=== PATIENT | male | born 1945 | race African-American/Black ===

== ENCOUNTER 2018-07-07 09:24 | Inpatient (IN) | payer MEDICARE, MEDICAID ==
[~2018-07-07] VITALS: Ht 170.2 cm; Wt 56.0 kg
[~2018-07-07 09:24] MED LIST: ALBUTEROL INH; ASPIRIN PO; FINA1TAB18 PO; TAMS-11 PO; TIOT18CA3 IH
[2018-07-07] MEDS ORDERED: ALBUTEROL (0.083%) 2.5MG/3ML NEB HHN STA ×2 (10:06→13:06)
[2018-07-07 10:26] LABS: BASOPHILS % 0.7 % (0.0-2.0); EOSINOPHILS % 2.8 % (0.0-5.0); HEMATOCRIT. 44.2 % (42.0-52.0); HEMOGLOBIN. 14.7 g/dL (14.0-18.0); LYMPHOCYTES % 21.3 % (20.0-50.0); MEAN CORPUSCULAR HEMOGLOBIN 31.2 pg (28.0-32.0); MEAN CORPUSCULAR VOLUME 93.9 fL (80.0-94.0); MEAN PLATELET VOLUME 8.8 fl (7.4-10.4); MONOCYTES % 7.6 % (2.0-8.0); NEUTROPHILS % 67.6 % (40.0-76.0); PLATELET 182 x1000/uL (130-400); RED BLOOD CELL COUNT 4.71 mill/uL (4.7-6.1); RED CELL DISTRIBUTION WIDTH 13.6 % (11.6-14.6)
[2018-07-07 10:32] LABS: CHLORIDE 108 mEq/L (98-107)
[2018-07-07 10:35] LABS: INR 1.2; PROTHROMBIN TIME 12.2 sec (9.6-11.0)
[2018-07-07] MEDS ORDERED: POTASSIUM CHLORIDE 20MEQ TABLET SR PO ONE (10:45)
[2018-07-07] MEDS ORDERED: IPRATROPIUM BROMIDE (0.02%) 0.5MG/2.5ML NEB HHN STA (13:06)
[2018-07-07] MEDS ORDERED: METHYLPREDNISOLONE SOD SUCC 125 MG/2 ML VIAL IV STA (13:06)
[2018-07-07] MEDS ORDERED: NITROGLYCERIN OINT 1GM/INCH UDPKT TD ONE (13:15)
[2018-07-07] MEDS ORDERED: FUROSEMIDE 40MG/4ML VIAL IV ONE (13:15)
[2018-07-07 15:30] VITALS: BP 127/64
[2018-07-07] MEDS ORDERED: ONDANSETRON HCL 4MG/2ML INJ IV PRN (15:30)
[2018-07-07] MEDS ORDERED: IPRATROPIUM/ALBUTEROL 0.5-3(2.5)MG/3ML NEB INH PRN (15:30)
[2018-07-07] MEDS ORDERED: ACETAMINOPHEN 325MG TABLET PO PRN (15:30)
[2018-07-07] MEDS ORDERED: CLONIDINE 0.1MG TABLET PO PRN (15:30)
[2018-07-07 16:00] VITALS: BP 115/42
[2018-07-07] MEDS: ENOXAPARIN 40MG/0.4ML SYR SUBCUT SCH (18:01)
[2018-07-07 20:12] VITALS: BP 118/73
[2018-07-07] MEDS: METHYLPREDNISOLONE SOD SUCC 40 MG/ML VIAL IV SCH (22:39)
[2018-07-07 23:11] LABS: CREATINE KINASE 96 IU/L (39-308)
[2018-07-08] VITALS: BP 129/69
[2018-07-08 04:00] VITALS: BP 130/64
[2018-07-08] MEDS: METHYLPREDNISOLONE SOD SUCC 40 MG/ML VIAL IV SCH ×3 (06:25→21:25)
[2018-07-08 07:16] LABS: HEMATOCRIT. 38.7 % (42.0-52.0); HEMOGLOBIN. 13.1 g/dL (14.0-18.0); MEAN CORPUSCULAR HEMOGLOBIN 31.8 pg (28.0-32.0); MEAN CORPUSCULAR VOLUME 94.2 fL (80.0-94.0); MEAN PLATELET VOLUME 9.3 fl (7.4-10.4); PLATELET 174 x1000/uL (130-400); RED BLOOD CELL COUNT 4.11 mill/uL (4.7-6.1); RED CELL DISTRIBUTION WIDTH 13.8 % (11.6-14.6)
[2018-07-08 07:45] LABS: CHLORIDE 109 mEq/L (98-107)
[2018-07-08 07:58] LABS: LDL CHOLESTEROL 70 mg/dL (5-100)
[2018-07-08 07:59] LABS: CREATINE KINASE 85 IU/L (39-308); T4 FREE 1.16 ng/dL (0.76-1.46)
[2018-07-08 08:00] VITALS: BP 109/47
[2018-07-08 08:00] LABS: HDL CHOLESTEROL 50 mg/dL (40-59)
[2018-07-08] MEDS: FUROSEMIDE 40MG/4ML VIAL IV SCH (08:49)
[2018-07-08 11:05] LABS: PLATELET ESTIMATE NORMAL
[2018-07-08 12:00] VITALS: BP 110/71
[2018-07-08] MEDS ORDERED: FUROSEMIDE 40MG/4ML VIAL IVP SCH (13:00)
[2018-07-08] MEDS: LEVOFLOXACIN 500MG PREMIX 100 ML IV SCH (14:29)
[2018-07-08] MEDS ORDERED: REGADENOSON 0.4 MG/5 ML IV NR (15:45)
[2018-07-08 16:00] VITALS: BP 123/56
[2018-07-08] MEDS: ENOXAPARIN 40MG/0.4ML SYR SUBCUT SCH (17:39)
[2018-07-08 19:15] LABS: *AMPHETAMINES SCREEN URINE NEGATIVE (NEGATIVE); *BARBITURATES SCREEN URINE NEGATIVE (NEGATIVE)
[2018-07-08 19:16] LABS: *BENZODIAZEPINES SCREEN URINE NEGATIVE (NEGATIVE); *COCAINE SCREEN URINE NEGATIVE (NEGATIVE); CANNABINOID URINE SCREEN NEGATIVE (NEGATIVE); METHADONE URINE SCREEN NEGATIVE (NEGATIVE); OPIATES URINE SCREEN NEGATIVE (NEGATIVE); PHENCYCLIDINE URINE SCREEN NEGATIVE (NEGATIVE)
[2018-07-08 19:50] VITALS: BP 122/65
[2018-07-08] MEDS: IPRATROPIUM/ALBUTEROL 0.5-3(2.5)MG/3ML NEB HHN SCH (20:28)
[2018-07-09] VITALS (7 sets, daily range): BP systolic 102–135; BP diastolic 45–65
[2018-07-09] MEDS: IPRATROPIUM/ALBUTEROL 0.5-3(2.5)MG/3ML NEB HHN SCH ×5 (04:14→16:11)
[2018-07-09] MEDS: METHYLPREDNISOLONE SOD SUCC 40 MG/ML VIAL IV SCH ×2 (05:41→21:40)
[2018-07-09 06:46] LABS: HEMATOCRIT 37.5 % (42.0-52.0); HEMOGLOBIN 12.6 g/dL (14.0-18.0); MEAN CORPUSCULAR HEMOGLOBIN 31.5 pg (28.0-32.0); MEAN CORPUSCULAR VOLUME 93.5 fL (80.0-94.0); PLATELET 177 x1000/uL (130-400); RED BLOOD CELL COUNT 4.01 mill/uL (4.7-6.1); RED CELL DISTRIBUTION WIDTH 13.7 % (11.6-14.6)
[2018-07-09 06:47] LABS: CHLORIDE 108 mEq/L (98-107)
[2018-07-09 06:58] LABS: LDL CHOLESTEROL 75 mg/dL (5-100)
[2018-07-09 07:00] LABS: CREATINE KINASE 60 IU/L (39-308)
[2018-07-09 07:02] LABS: CREATINE KINASE MB FRACTION < 1.0 ng/mL (0.5-3.6); HDL CHOLESTEROL 48 mg/dL (40-59)
[2018-07-09] MEDS: FUROSEMIDE 40MG/4ML VIAL IV SCH (09:16)
[2018-07-09] MEDS: LEVOFLOXACIN 500MG PREMIX 100 ML IV SCH (14:01)
[2018-07-09] MEDS: ENOXAPARIN 40MG/0.4ML SYR SUBCUT SCH (16:30)
[2018-07-09 21:23] LABS: BG BASE EXCESS 6.8 mmol/L (-2.0-2.0); BG CARBOXYHEMOGLOBIN 0.3 % (0.5-1.5); BG DEOXYHEMOGLOBIN 5.8 % (0.0-5.0); BG FRACTION INSPIRED OXYGEN 21; BG HCO3 ACT 31.2 mmol/L (22.0-26.0); BG METHEMOGLOBIN 0.4 % (0.0-1.5); BG OXYGEN SATURATION 94.2 % (92.0-98.5); BG OXYHEMOGLOBIN 93.5 % (94.0-97.0); BG PCO2 43.6 mmHg (35.0-45.0); BG PH 7.473 (7.350-7.450); BG PO2 68.2 mmHg (75.0-100.0); BG SAMPLE SITE RIGHT BRACHIAL; BG TOTAL HEMOGLOBIN 13.1 g/dL (12.0-18.0); BG VENT MODE ROOM AIR
[2018-07-10 00:05] VITALS: BP 135/66
[2018-07-10 04:00] VITALS: BP 124/77
[2018-07-10] MEDS: IPRATROPIUM/ALBUTEROL 0.5-3(2.5)MG/3ML NEB HHN SCH ×5 (05:10→20:50)
[2018-07-10 08:00] VITALS: BP 136/64
[2018-07-10] MEDS: FUROSEMIDE 40MG/4ML VIAL IV SCH (09:31)
[2018-07-10] MEDS: METHYLPREDNISOLONE SOD SUCC 40 MG/ML VIAL IV SCH ×2 (11:28→21:28)
[2018-07-10 12:00] VITALS: BP 134/66
[2018-07-10] MEDS: LEVOFLOXACIN 500MG PREMIX 100 ML IV SCH (14:25)
[2018-07-10] MEDS: HYDROCODONE/ACETAMINOPHEN 5/325MG TABLET PO PRN ×3 (14:36→18:05)
[2018-07-10 16:00] VITALS: BP 128/64
[2018-07-10] MEDS: ENOXAPARIN 40MG/0.4ML SYR SUBCUT SCH (16:00)
== END 2018-07-10 21:53 | disposition home or self-care (01) | DRG 291 ==
LOC: ER 09:24 → 7WST 11:36 → EDBEDREQ 11:42 → EDBEDREQTM 11:42 → ENRESERV 13:24
PROVIDERS: ADMIT Internal Medicine; ATTEND Internal Medicine
PROC: 4B02XTZ Measurement of Cardiac Defibrillator, External Approach (ICD-10-PCS; principal; 2018-07-08)
DX: I11.0 Hypertensive heart disease with heart failure (principal); J18.9 Pneumonia, unspecified organism; J96.90 Respiratory failure, unspecified, unspecified whether with hypoxia or hypercapnia; J44.1 Chronic obstructive pulmonary disease with (acute) exacerbation; I50.43 Acute on chronic combined systolic (congestive) and diastolic (congestive) heart failure; I42.0 Dilated cardiomyopathy; E78.00 Pure hypercholesterolemia, unspecified; E87.6 Hypokalemia; I25.10 Atherosclerotic heart disease of native coronary artery without angina pectoris; I25.2 Old myocardial infarction; I45.10 Unspecified right bundle-branch block; Z79.82 Long term (current) use of aspirin; Z87.891 Personal history of nicotine dependence; Z95.810 Presence of automatic (implantable) cardiac defibrillator; Z99.81 Dependence on supplemental oxygen; Z88.0 Allergy status to penicillin; Z88.2 Allergy status to sulfonamides
CPT/HCPCS: 36415; 36600; 71045; 80048; 80061; 80305; 82375; 82550; 82553; 82805; 82962; 83735; 83880; 84145; 84439; 84443; 84484; 85027; 93005; 93306; 94618; 94640; 96374; 96375; 97162; 97166; 99285; C1893; J1650; J1940; J1956; J2920; J2930; J7050; J7611; J7620

== ENCOUNTER 2018-07-13 09:25 | Inpatient (IN) | payer MEDICARE, MEDICAID ==
[~2018-07-13] VITALS: Ht 167.6 cm; Wt 62.6 kg
[2018-07-13 10:52] LABS: HEMATOCRIT. 43.3 % (42.0-52.0); HEMOGLOBIN. 14.4 g/dL (14.0-18.0); MEAN CORPUSCULAR HEMOGLOBIN 31.7 pg (28.0-32.0); MEAN CORPUSCULAR VOLUME 95.1 fL (80.0-94.0); MEAN PLATELET VOLUME 8.7 fl (7.4-10.4); PLATELET 139 x1000/uL (130-400); RED BLOOD CELL COUNT 4.55 mill/uL (4.7-6.1); RED CELL DISTRIBUTION WIDTH 13.6 % (11.6-14.6)
[2018-07-13 10:59] LABS: CHLORIDE 109 mEq/L (98-107)
[2018-07-13 11:22] LABS: PLATELET ESTIMATE NORMAL
[2018-07-13] MEDS ORDERED: ASPIRIN 325MG EC TABLET PO ONE (12:00)
[2018-07-13] MEDS ORDERED: HYDROCODONE/ACETAMINOPHEN 5/325MG TABLET PO PRN (16:30)
[2018-07-13] MEDS ORDERED: ONDANSETRON HCL 4MG/2ML INJ IV PRN (16:30)
[2018-07-13] MEDS ORDERED: ACETAMINOPHEN 650MG SUPP PR PRN (16:30)
[2018-07-13] MEDS ORDERED: IPRATROPIUM/ALBUTEROL 0.5-3(2.5)MG/3ML NEB INH PRN (16:30)
[2018-07-13] MEDS ORDERED: CLONIDINE 0.1MG TABLET PO PRN (16:30)
[2018-07-13] MEDS ORDERED: REGADENOSON 0.4 MG/5 ML IV NR (16:45)
[2018-07-13 20:00] VITALS: BP_SYST 147; BP_SYST 91; BP_DIAS 60; BP_DIAS 80
[2018-07-13] MEDS: ENOXAPARIN 40MG/0.4ML SYR SUBCUT SCH (22:46)
[2018-07-14] VITALS: BP 116/71
[2018-07-14] MEDS ORDERED: PRED10TA23 PO (00:15)
[2018-07-14] MEDS ORDERED: LEVO250T58 PO (00:15)
[2018-07-14 04:00] VITALS: BP 111/69
[2018-07-14 06:59] LABS: BASOPHILS % 0.1 % (0.0-2.0); EOSINOPHILS % 3.7 % (0.0-5.0); HEMATOCRIT. 37.8 % (42.0-52.0); HEMOGLOBIN. 12.5 g/dL (14.0-18.0); LYMPHOCYTES % 29.2 % (20.0-50.0); MEAN CORPUSCULAR HEMOGLOBIN 31.5 pg (28.0-32.0); MEAN CORPUSCULAR VOLUME 94.8 fL (80.0-94.0); MONOCYTES % 10.9 % (2.0-8.0); NEUTROPHILS % 56.1 % (40.0-76.0); PLATELET 140 x1000/uL (130-400); RED BLOOD CELL COUNT 3.99 mill/uL (4.7-6.1); RED CELL DISTRIBUTION WIDTH 13.4 % (11.6-14.6)
[2018-07-14 07:06] LABS: CHLORIDE 111 mEq/L (98-107)
[2018-07-14 07:21] LABS: LDL CHOLESTEROL 73 mg/dL (5-100)
[2018-07-14 07:22] LABS: CREATINE KINASE 51 IU/L (39-308)
[2018-07-14 07:23] LABS: CREATINE KINASE MB FRACTION < 1.0 ng/mL (0.5-3.6); HDL CHOLESTEROL 52 mg/dL (40-59); T4 FREE 1.12 ng/dL (0.76-1.46)
[2018-07-14 08:00] VITALS: BP 131/68
[2018-07-14 12:00] VITALS: BP 113/65
[2018-07-14] MEDS: IPRATROPIUM/ALBUTEROL 0.5-3(2.5)MG/3ML NEB HHN SCH ×4 (15:48→21:24)
[2018-07-14 16:00] VITALS: BP 148/73
[2018-07-14 20:00] VITALS: BP 114/66
[2018-07-15 00:03] VITALS: BP 109/65
[2018-07-15] MEDS: IPRATROPIUM/ALBUTEROL 0.5-3(2.5)MG/3ML NEB HHN SCH ×4 (00:45→20:40)
[2018-07-15 04:00] VITALS: BP 124/66
[2018-07-15 07:12] LABS: BASOPHILS % 0.2 % (0.0-2.0); EOSINOPHILS % 3.1 % (0.0-5.0); HEMATOCRIT. 38.5 % (42.0-52.0); HEMOGLOBIN. 12.8 g/dL (14.0-18.0); LYMPHOCYTES % 21.8 % (20.0-50.0); MEAN CORPUSCULAR HEMOGLOBIN 31.4 pg (28.0-32.0); MEAN CORPUSCULAR VOLUME 94.6 fL (80.0-94.0); MEAN PLATELET VOLUME 8.9 fl (7.4-10.4); MONOCYTES % 10.1 % (2.0-8.0); NEUTROPHILS % 64.8 % (40.0-76.0); PLATELET 138 x1000/uL (130-400); RED BLOOD CELL COUNT 4.07 mill/uL (4.7-6.1); RED CELL DISTRIBUTION WIDTH 13.2 % (11.6-14.6)
[2018-07-15 07:43] LABS: CHLORIDE 113 mEq/L (98-107)
[2018-07-15 07:44] VITALS: BP 128/75
[2018-07-15 11:59] VITALS: BP 123/70
[2018-07-15] MEDS: ASPIRIN 81MG EC TABLET PO SCH (13:12)
[2018-07-15] MEDS: PREDNISONE 20MG TABLET PO SCH (13:12)
[2018-07-15] MEDS: BUDESONIDE 0.5MG/2ML NEB HHN SCH ×2 (14:17→20:40)
[2018-07-15 15:59] VITALS: BP 139/98
[2018-07-15 20:00] VITALS: BP 98/50
[2018-07-15] MEDS: ENOXAPARIN 40MG/0.4ML SYR SUBCUT SCH (20:24)
[2018-07-15 21:46] LABS: BG CARBOXYHEMOGLOBIN 0.7 % (0.5-1.5); BG DEOXYHEMOGLOBIN 7.2 % (0.0-5.0); BG FRACTION INSPIRED OXYGEN 21; BG HCO3 ACT 25.9 mmol/L (22.0-26.0); BG METHEMOGLOBIN 0.3 % (0.0-1.5); BG OXYGEN SATURATION 92.7 % (92.0-98.5); BG OXYHEMOGLOBIN 91.8 % (94.0-97.0); BG PH 7.451 (7.350-7.450); BG PO2 61.1 mmHg (75.0-100.0); BG SAMPLE SITE LEFT BRACHIAL; BG TOTAL HEMOGLOBIN 13.7 g/dL (12.0-18.0); BG VENT MODE ROOM AIR
[2018-07-16] MEDS: IPRATROPIUM/ALBUTEROL 0.5-3(2.5)MG/3ML NEB HHN SCH ×6 (00:10→19:51)
[2018-07-16 04:00] VITALS: BP 108/51
[2018-07-16 08:00] VITALS: BP 119/62
[2018-07-16 08:20] VITALS: BP 120/62
[2018-07-16] MEDS: PREDNISONE 20MG TABLET PO SCH (08:51)
[2018-07-16] MEDS: ASPIRIN 81MG EC TABLET PO SCH (08:51)
[2018-07-16] MEDS: BUDESONIDE 0.5MG/2ML NEB HHN SCH ×2 (09:22→19:51)
[2018-07-16] MEDS: DOCUSATE SODIUM 100MG CAPSULE PO SCH ×2 (11:56→17:00)
[2018-07-16 12:00] VITALS: BP 140/61
[2018-07-16] MEDS: SODIUM CHLORIDE 0.45% 1,000 ML IV SCH (14:45)
[2018-07-16] MEDS: AMLODIPINE 5MG TABLET PO SCH (15:34)
[2018-07-16 16:00] VITALS: BP 166/92
[2018-07-16 20:00] VITALS: BP_SYST 112; BP_SYST 147; BP_DIAS 67; BP_DIAS 82
[2018-07-16] MEDS: ENOXAPARIN 40MG/0.4ML SYR SUBCUT SCH (20:57)
[2018-07-17] VITALS: BP 112/48
[2018-07-17 04:00] VITALS: BP 136/49
[2018-07-17] MEDS: IPRATROPIUM/ALBUTEROL 0.5-3(2.5)MG/3ML NEB HHN SCH ×5 (04:00→21:19)
[2018-07-17 08:00] VITALS: BP 122/67
[2018-07-17] MEDS: BUDESONIDE 0.5MG/2ML NEB HHN SCH ×2 (08:10→21:19)
[2018-07-17 08:43] LABS: HEMATOCRIT 42.9 % (42.0-52.0); HEMOGLOBIN 14.2 g/dL (14.0-18.0); MEAN CORPUSCULAR HEMOGLOBIN 31.5 pg (28.0-32.0); PLATELET 163 x1000/uL (130-400); RED BLOOD CELL COUNT 4.51 mill/uL (4.7-6.1); RED CELL DISTRIBUTION WIDTH 13.9 % (11.6-14.6)
[2018-07-17 08:50] LABS: CHLORIDE 112 mEq/L (98-107)
[2018-07-17] MEDS: PREDNISONE 20MG TABLET PO SCH (09:42)
[2018-07-17] MEDS: AMLODIPINE 5MG TABLET PO SCH (09:42)
[2018-07-17] MEDS: DOCUSATE SODIUM 100MG CAPSULE PO SCH ×2 (09:42→16:25)
[2018-07-17] MEDS: ASPIRIN 81MG EC TABLET PO SCH (09:43)
[2018-07-17] MEDS: SODIUM CHLORIDE 0.45% 1,000 ML IV SCH (10:45)
[2018-07-17 16:29] VITALS: BP 121/46
[2018-07-17] MEDS: ENOXAPARIN 40MG/0.4ML SYR SUBCUT SCH (20:39)
[2018-07-17 21:00] VITALS: BP 131/45
== END 2018-07-17 23:25 | disposition home or self-care (01) | DRG 190 ==
LOC: ER 09:25 → 8WST 12:42 → EDBEDREQ 12:45 → EDBEDREQTM 12:45 → ENRESERV 17:11 → 6WST 07-15 17:14
PROVIDERS: ADMIT Internal Medicine; ATTEND Internal Medicine
DX: J44.1 Chronic obstructive pulmonary disease with (acute) exacerbation (principal); I50.33 Acute on chronic diastolic (congestive) heart failure; E46 Unspecified protein-calorie malnutrition; I42.0 Dilated cardiomyopathy; I11.0 Hypertensive heart disease with heart failure; R06.03 Acute respiratory distress; D64.9 Anemia, unspecified; E78.00 Pure hypercholesterolemia, unspecified; I25.10 Atherosclerotic heart disease of native coronary artery without angina pectoris; K59.00 Constipation, unspecified; Z75.1 Person awaiting admission to adequate facility elsewhere; Z79.899 Other long term (current) drug therapy; Z87.891 Personal history of nicotine dependence; Z99.81 Dependence on supplemental oxygen; Z95.810 Presence of automatic (implantable) cardiac defibrillator; Z91.19 Patient's noncompliance with other medical treatment and regimen; Z59.0 Homelessness; Z87.01 Personal history of pneumonia (recurrent); Z88.0 Allergy status to penicillin; Z88.2 Allergy status to sulfonamides; Z79.82 Long term (current) use of aspirin; I25.2 Old myocardial infarction; Z68.22 Body mass index [BMI] 22.0-22.9, adult
CPT/HCPCS: 36415; 36600; 71045; 80048; 80061; 82375; 82550; 82553; 82805; 83735; 83880; 84439; 84443; 84484; 85027; 93005; 94640; 97161; 99285; C1893; J1650; J7512; J7620; J7626

== ENCOUNTER 2018-10-19 11:42 | Inpatient (IN) | payer MEDICARE, MEDICAID ==
[~2018-10-19] VITALS: Ht 167.6 cm; Wt 65.3 kg
[~2018-10-19 11:42] MED LIST changes: +LEVO250T58 PO; +PRED10TA23 PO
[2018-10-19 12:49] LABS: EOSINOPHILS % 1.9 % (0.0-5.0); HEMATOCRIT. 42.6 % (42.0-52.0); HEMOGLOBIN. 14.5 g/dL (14.0-18.0); LYMPHOCYTES % 31.4 % (20.0-50.0); MEAN CORPUSCULAR HEMOGLOBIN 31.7 pg (28.0-32.0); MEAN CORPUSCULAR VOLUME 93.5 fL (80.0-94.0); MEAN PLATELET VOLUME 9.4 fl (7.4-10.4); MONOCYTES % 7.7 % (2.0-8.0); PLATELET 122 x1000/uL (130-400); RED BLOOD CELL COUNT 4.56 mill/uL (4.7-6.1); RED CELL DISTRIBUTION WIDTH 13.9 % (11.6-14.6)
[2018-10-19 12:50] LABS: CHLORIDE 109 mEq/L (98-107)
[2018-10-19] MEDS ORDERED: ONDANSETRON HCL 4MG/2ML INJ IV PRN (15:45)
[2018-10-19] MEDS ORDERED: NA PHOS,M-B/NA PHOS,DI-BA ENEMA 118ML PR PRN (15:45)
[2018-10-19] MEDS ORDERED: HYDROCODONE/ACETAMINOPHEN 5/325MG TABLET PO PRN (15:45)
[2018-10-19] MEDS ORDERED: DIPHENHYDRAMINE 50MG/ML VIAL IV PRN (15:45)
[2018-10-19] MEDS ORDERED: GUAIFENESIN 200MG/10ML SUGAR FREE UDC PO PRN (15:45)
[2018-10-19] MEDS ORDERED: IPRATROPIUM/ALBUTEROL 0.5-3(2.5)MG/3ML NEB INH PRN (15:45)
[2018-10-19] MEDS ORDERED: ACETAMINOPHEN 325MG TABLET PO PRN (15:45)
[2018-10-19] MEDS ORDERED: MAGNESIUM/ALUMINUM HYDROXIDE/SIMETHICONE 30ML UDC PO PRN (15:45)
[2018-10-19] MEDS ORDERED: DOCUSATE SODIUM 100MG CAPSULE PO PRN (15:45)
[2018-10-19] MEDS ORDERED: ACETAMINOPHEN 650MG SUPP PR PRN (15:45)
[2018-10-19] MEDS ORDERED: CLONIDINE 0.1MG TABLET PO PRN (15:45)
[2018-10-19] MEDS ORDERED: LORAZEPAM 0.5MG TABLET PO PRN (15:45)
[2018-10-19] MEDS ORDERED: LEVOFLOXACIN 500MG PREMIX 100 ML IV SCH (18:00)
[2018-10-19] MEDS: ENOXAPARIN 40MG/0.4ML SYR SUBCUT SCH (19:03)
[2018-10-19] MEDS: METHYLPREDNISOLONE SOD SUCC 40 MG/ML VIAL IV SCH (19:04)
[2018-10-19 19:48] VITALS: BP 142/75
[2018-10-19 20:00] VITALS: BP 168/91
[2018-10-19] MEDS: IPRATROPIUM/ALBUTEROL 0.5-3(2.5)MG/3ML NEB INH SCH (21:20)
[2018-10-20] VITALS (7 sets, daily range): BP systolic 113–150; BP diastolic 60–78
[2018-10-20 00:19] LABS: CREATINE KINASE 85 IU/L (39-308)
[2018-10-20 00:21] LABS: CREATINE KINASE MB FRACTION < 1.0 ng/mL (0.5-3.6)
[2018-10-20] MEDS: METHYLPREDNISOLONE SOD SUCC 40 MG/ML VIAL IV SCH ×2 (02:00→10:11)
[2018-10-20] MEDS: IPRATROPIUM/ALBUTEROL 0.5-3(2.5)MG/3ML NEB INH SCH ×4 (02:42→21:15)
[2018-10-20 06:34] LABS: BASOPHILS % 0.3 % (0.0-2.0); HEMATOCRIT. 40.3 % (42.0-52.0); HEMOGLOBIN. 13.9 g/dL (14.0-18.0); MEAN PLATELET VOLUME 10.7 fl (7.4-10.4); NEUTROPHILS % 89.7 % (40.0-76.0); PLATELET 126 x1000/uL (130-400); RED BLOOD CELL COUNT 4.33 mill/uL (4.7-6.1); RED CELL DISTRIBUTION WIDTH 13.8 % (11.6-14.6)
[2018-10-20 07:14] LABS: CHLORIDE 110 mEq/L (98-107)
[2018-10-20 07:23] LABS: LDL CHOLESTEROL 102 mg/dL (5-100)
[2018-10-20 07:24] LABS: CREATINE KINASE 81 IU/L (39-308); CREATINE KINASE MB FRACTION < 1.0 ng/mL (0.5-3.6); HDL CHOLESTEROL 76 mg/dL (40-59); T4 FREE 0.92 ng/dL (0.76-1.46)
[2018-10-20] MEDS ORDERED: FLUT1BLS12 IH (07:34)
[2018-10-20] MEDS ORDERED: TIOT18CA3 INH (07:36)
[2018-10-20] MEDS ORDERED: ALBU18HF2 IH (07:37)
[2018-10-20] MEDS ORDERED: TIOT18CA3 IH (07:39)
[2018-10-20] MEDS: ASPIRIN 81MG EC TABLET PO SCH (10:11)
[2018-10-20] MEDS: ENOXAPARIN 40MG/0.4ML SYR SUBCUT SCH (17:00)
[2018-10-20] MEDS ORDERED: LEVOFLOXACIN 500MG PREMIX 100 ML IV SCH (18:00)
[2018-10-21] VITALS: BP 112/55
[2018-10-21] MEDS: METHYLPREDNISOLONE SOD SUCC 40 MG/ML VIAL IV SCH ×2 (01:57→09:22)
[2018-10-21] MEDS: IPRATROPIUM/ALBUTEROL 0.5-3(2.5)MG/3ML NEB INH SCH ×4 (03:28→21:18)
[2018-10-21 08:00] VITALS: BP 145/80
[2018-10-21] MEDS: ASPIRIN 81MG EC TABLET PO SCH (08:57)
[2018-10-21 12:00] VITALS: BP 150/82
[2018-10-21] MEDS: PREDNISONE 20MG TABLET PO SCH (15:05)
[2018-10-21] MEDS: LEVOFLOXACIN 500MG TABLET PO SCH (15:06)
[2018-10-21 16:00] VITALS: BP 132/73
[2018-10-21] MEDS: ENOXAPARIN 40MG/0.4ML SYR SUBCUT SCH (16:57)
[2018-10-21 20:00] VITALS: BP 142/81
[2018-10-21] MEDS: ATORVASTATIN CALCIUM 10MG TABLET PO SCH (22:50)
[2018-10-22] VITALS: BP 133/71
[2018-10-22 04:00] VITALS: BP 144/90
[2018-10-22] MEDS: IPRATROPIUM/ALBUTEROL 0.5-3(2.5)MG/3ML NEB INH SCH ×3 (07:56→21:21)
[2018-10-22 08:00] VITALS: BP 135/71
[2018-10-22] MEDS: PREDNISONE 20MG TABLET PO SCH (08:43)
[2018-10-22] MEDS: ASPIRIN 81MG EC TABLET PO SCH (08:43)
[2018-10-22 16:00] VITALS: BP 124/70
[2018-10-22] MEDS: LEVOFLOXACIN 500MG TABLET PO SCH (16:00)
[2018-10-22] MEDS: ENOXAPARIN 40MG/0.4ML SYR SUBCUT SCH (17:49)
[2018-10-22 20:00] VITALS: BP 129/60
[2018-10-22] MEDS: ATORVASTATIN CALCIUM 10MG TABLET PO SCH (21:00)
[2018-10-23] VITALS: BP 131/73
[2018-10-23] MEDS: IPRATROPIUM/ALBUTEROL 0.5-3(2.5)MG/3ML NEB INH SCH ×3 (02:27→09:13)
[2018-10-23 04:00] VITALS: BP 150/67
[2018-10-23 08:00] VITALS: BP 137/78
[2018-10-23] MEDS: ASPIRIN 81MG EC TABLET PO SCH (09:04)
[2018-10-23] MEDS: PREDNISONE 20MG TABLET PO SCH (09:04)
[2018-10-25] MEDS ORDERED: PREDNISONE 20MG TABLET PO SCH (09:00)
[2018-10-29] MEDS ORDERED: PREDNISONE 10MG TABLET PO SCH (09:00)
== END 2018-10-23 12:03 | DRG 190 ==
LOC: ER 11:42 → 6EST 13:59 → EDBEDREQ 14:08 → ENRESERV 14:48 → SUPCPDRO 15:31
PROVIDERS: ADMIT Internal Medicine; ATTEND Internal Medicine
DX: J44.1 Chronic obstructive pulmonary disease with (acute) exacerbation (principal); I50.33 Acute on chronic diastolic (congestive) heart failure; R73.9 Hyperglycemia, unspecified; D64.9 Anemia, unspecified; I25.10 Atherosclerotic heart disease of native coronary artery without angina pectoris; E86.0 Dehydration; I11.0 Hypertensive heart disease with heart failure; Z99.81 Dependence on supplemental oxygen; Z95.810 Presence of automatic (implantable) cardiac defibrillator; Z79.899 Other long term (current) drug therapy; Z91.19 Patient's noncompliance with other medical treatment and regimen; Z88.0 Allergy status to penicillin; Z88.2 Allergy status to sulfonamides; Z79.82 Long term (current) use of aspirin
CPT/HCPCS: 36415; 71045; 80061; 82550; 82553; 84439; 84443; 84484; 93005; 93970; 94640; 96374; 97162; 99285; J1650; J1956; J2920; J7512; J7620

== ENCOUNTER 2018-11-14 10:47 | Emergency (ER) | payer MEDICARE, MEDICAID ==
[~2018-11-14] VITALS: Ht 182.9 cm; Wt 65.0 kg
[~2018-11-14 10:47] MED LIST changes: +ALBU18HF2 IH; +FLUT1BLS12 IH; -LEVO250T58 PO; +TIOT18CA3 INH
[2018-11-14] MEDS ORDERED: ACETAMINOPHEN 325MG TABLET PO ONE (12:00)
[2018-11-14 12:15] LABS: BASOPHILS % 0.7 % (0.0-2.0); EOSINOPHILS % 3.7 % (0.0-5.0); HEMATOCRIT. 41.3 % (42.0-52.0); HEMOGLOBIN. 13.9 g/dL (14.0-18.0); LYMPHOCYTES % 33.3 % (20.0-50.0); MEAN CORPUSCULAR HEMOGLOBIN 31.7 pg (28.0-32.0); MEAN CORPUSCULAR VOLUME 94.4 fL (80.0-94.0); NEUTROPHILS % 55.3 % (40.0-76.0); PLATELET 105 x1000/uL (130-400); RED BLOOD CELL COUNT 4.37 mill/uL (4.7-6.1); RED CELL DISTRIBUTION WIDTH 14.2 % (11.6-14.6)
[2018-11-14 12:18] LABS: CHLORIDE 116 mEq/L (98-107)
[2018-11-14 17:42] VITALS: BP 145/78
== END 2018-11-14 18:00 | disposition home or self-care (01) ==
LOC: ER 10:56
DX: R07.89 Other chest pain (principal); I11.0 Hypertensive heart disease with heart failure; I50.9 Heart failure, unspecified; J44.9 Chronic obstructive pulmonary disease, unspecified; Z95.0 Presence of cardiac pacemaker; Z88.2 Allergy status to sulfonamides; Z88.0 Allergy status to penicillin
CPT/HCPCS: 36415; 71045; 83880; 84484; 93005; 99284

== ENCOUNTER 2019-01-21 15:44 | Emergency (ER) | payer MEDICARE, MEDICAID ==
[~2019-01-21] VITALS: Ht 175.3 cm; Wt 85.0 kg
[2019-01-21 18:34] LABS: CHLORIDE 111 mEq/L (98-107)
[2019-01-21 18:35] LABS: BASOPHILS % 0.6 % (0.0-2.0); EOSINOPHILS % 3.5 % (0.0-5.0); HEMATOCRIT. 40.8 % (42.0-52.0); HEMOGLOBIN. 13.5 g/dL (14.0-18.0); MEAN CORPUSCULAR VOLUME 93.5 fL (80.0-94.0); MEAN PLATELET VOLUME 9.1 fl (7.4-10.4); MONOCYTES % 9.7 % (2.0-8.0); NEUTROPHILS % 60.2 % (40.0-76.0); PLATELET 127 x1000/uL (130-400); RED BLOOD CELL COUNT 4.36 mill/uL (4.7-6.1); RED CELL DISTRIBUTION WIDTH 13.1 % (11.6-14.6)
[2019-01-22 06:05] VITALS: BP 163/90
== END 2019-01-22 06:16 | disposition home or self-care (01) ==
LOC: ER 15:44
DX: R53.83 Other fatigue (principal); I11.0 Hypertensive heart disease with heart failure; I50.9 Heart failure, unspecified; J44.9 Chronic obstructive pulmonary disease, unspecified; Z79.899 Other long term (current) drug therapy; Z79.82 Long term (current) use of aspirin; Z88.0 Allergy status to penicillin; Z88.2 Allergy status to sulfonamides
CPT/HCPCS: 36415; 99283

== ENCOUNTER 2019-01-24 23:17 | Inpatient (IN) | payer MEDICARE, MEDICAID ==
[~2019-01-24] VITALS: Ht 172.7 cm; Wt 73.0 kg
[2019-01-25 00:46] LABS: BASOPHILS % 0.6 % (0.0-2.0); EOSINOPHILS % 1.5 % (0.0-5.0); HEMATOCRIT. 43.5 % (42.0-52.0); HEMOGLOBIN. 14.5 g/dL (14.0-18.0); LYMPHOCYTES % 24.1 % (20.0-50.0); MEAN CORPUSCULAR HEMOGLOBIN 31.2 pg (28.0-32.0); MEAN CORPUSCULAR VOLUME 93.7 fL (80.0-94.0); NEUTROPHILS % 61.8 % (40.0-76.0); PLATELET 138 x1000/uL (130-400); RED BLOOD CELL COUNT 4.64 mill/uL (4.7-6.1); RED CELL DISTRIBUTION WIDTH 13.1 % (11.6-14.6)
[2019-01-25 00:52] LABS: CHLORIDE 115 mEq/L (98-107)
[2019-01-25 00:56] LABS: ETHANOL BLOOD < 10 mg/dL
[2019-01-25 01:00] LABS: CREATINE KINASE 287 IU/L (39-308)
[2019-01-25] MEDS ORDERED: LORAZEPAM 2MG/ML CPJ IM PRN ×2 (01:15→03:15)
[2019-01-25 02:09] LABS: CLARITY URINE TURBID (CLEAR); COLOR URINE YELLOW (YELLOW); KETONES URINE TRACE (NEGATIVE); LEUKOCYTE ESTERASE URINE 3+ (NEGATIVE); NITRITE URINE NEGATIVE (NEGATIVE); OCCULT BLOOD URINE 2+ (NEGATIVE); PH URINE 5.5 (4.5-8.0); PROTEIN URINE 1+ (NEGATIVE); SPECIFIC GRAVITY URINE 1.021 (1.005-1.030)
[2019-01-25 02:17] LABS: *AMPHETAMINES SCREEN URINE NEGATIVE (NEGATIVE); *BARBITURATES SCREEN URINE NEGATIVE (NEGATIVE); *BENZODIAZEPINES SCREEN URINE PRESUMTIVE POSITIVE (NEGATIVE); *COCAINE SCREEN URINE NEGATIVE (NEGATIVE); CANNABINOID URINE SCREEN NEGATIVE (NEGATIVE); METHADONE URINE SCREEN NEGATIVE (NEGATIVE); OPIATES URINE SCREEN NEGATIVE (NEGATIVE)
[2019-01-25 02:18] LABS: PHENCYCLIDINE URINE SCREEN NEGATIVE (NEGATIVE)
[2019-01-25] MEDS ORDERED: DIPHENHYDRAMINE 50MG/ML VIAL IM ONE (04:00)
[2019-01-25] MEDS ORDERED: CEFTRIAXONE 1 G PREMIX 50 ML IV SCH (05:00)
[2019-01-25 08:00] VITALS: BP 144/66
[2019-01-25 08:30] VITALS: BP 144/66
[2019-01-25] MEDS ORDERED: IPRATROPIUM/ALBUTEROL 0.5-3(2.5)MG/3ML NEB HHN PRN (09:15)
[2019-01-25] MEDS ORDERED: ACETAMINOPHEN 650MG/20.3ML UDC PO PRN (09:15)
[2019-01-25] MEDS ORDERED: DEXTROSE 50% WATER 50ML SYRINGE IV PRN (10:30)
[2019-01-25] MEDS: ASPIRIN 81MG TABLET PO SCH (10:59)
[2019-01-25] MEDS: AMLODIPINE 5MG TABLET PO SCH (11:00)
[2019-01-25 11:53] LABS: INR 1.2; PROTHROMBIN TIME 11.8 sec (9.6-11.0)
[2019-01-25 12:10] VITALS: BP 161/90
[2019-01-25] MEDS: LEVOFLOXACIN 500MG PREMIX 100 ML IV SCH (12:26)
[2019-01-25] MEDS: BLOOD SUGAR DIAGNOSTIC STRIP TEST SCH ×3 (12:26→21:52)
[2019-01-25] MEDS: IPRATROPIUM/ALBUTEROL 0.5-3(2.5)MG/3ML NEB HHN SCH ×3 (13:22→21:00)
[2019-01-25] MEDS: INSULIN LISPRO 100 UNITS/ML SUBCUT SCH ×3 (13:35→22:06)
[2019-01-25 13:36] LABS: BG BASE EXCESS 1.9 mmol/L (-2.0-2.0); BG CARBOXYHEMOGLOBIN 0.9 % (0.5-1.5); BG DEOXYHEMOGLOBIN 2.6 % (0.0-5.0); BG FRACTION INSPIRED OXYGEN 21; BG HCO3 ACT 24.4 mmol/L (22.0-26.0); BG METHEMOGLOBIN 0.2 % (0.0-1.5); BG OXYGEN SATURATION 97.4 % (92.0-98.5); BG OXYHEMOGLOBIN 96.3 % (94.0-97.0); BG PCO2 32.1 mmHg (35.0-45.0); BG PH 7.499 (7.350-7.450); BG PO2 89.1 mmHg (75.0-100.0); BG SAMPLE SITE RIGHT BRACHIAL; BG TOTAL HEMOGLOBIN 14.1 g/dL (12.0-18.0); BG VENT MODE ROOM AIR
[2019-01-25] MEDS ORDERED: HALOPERIDOL LACTATE 5MG/ML VIAL IM PRN (14:15)
[2019-01-25] MEDS ORDERED: DIPHENHYDRAMINE 50MG/ML VIAL IV PRN (14:45)
[2019-01-25] MEDS ORDERED: HYDROCODONE/ACETAMINOPHEN 5/325MG TABLET PO PRN (14:45)
[2019-01-25 16:00] VITALS: BP 226/92
[2019-01-25] MEDS: METHYLPREDNISOLONE SOD SUCC 40 MG/ML VIAL IV SCH ×2 (16:30→22:48)
[2019-01-25] MEDS: ENOXAPARIN 40MG/0.4ML SYR SUBCUT SCH (16:43)
[2019-01-25] MEDS ORDERED: INFLUENZA VIRUS VACCINE(AFLURIA) 0.5ML SYR IM ONE (17:30)
[2019-01-25] MEDS ORDERED: PNEUMOCOCCAL 23-VAL P-SAC VAC 0.5 ML IM ONE (17:45)
[2019-01-25 20:00] VITALS: BP 163/91
[2019-01-25] MEDS: BUDESONIDE 0.5MG/2ML NEB HHN SCH (21:00)
[2019-01-25] MEDS ORDERED: LACTULOSE 20G/30ML UDC PO PRN (21:00)
[2019-01-25] MEDS: HYDRALAZINE HCL 50MG TABLET PO SCH (21:53)
[2019-01-26] VITALS: BP 156/87
[2019-01-26] MEDS: IPRATROPIUM/ALBUTEROL 0.5-3(2.5)MG/3ML NEB HHN SCH ×5 (01:00→17:43)
[2019-01-26 04:00] VITALS: BP 126/84
[2019-01-26] MEDS: HYDRALAZINE HCL 50MG TABLET PO SCH (05:32)
[2019-01-26 06:31] LABS: HEMOGLOBIN 14.5 g/dL (14.0-18.0); MEAN CORPUSCULAR HEMOGLOBIN 31.5 pg (28.0-32.0); MEAN CORPUSCULAR VOLUME 93.1 fL (80.0-94.0); PLATELET 143 x1000/uL (130-400); RED BLOOD CELL COUNT 4.62 mill/uL (4.7-6.1); RED CELL DISTRIBUTION WIDTH 13.5 % (11.6-14.6)
[2019-01-26] MEDS: METHYLPREDNISOLONE SOD SUCC 40 MG/ML VIAL IV SCH ×2 (06:48→15:55)
[2019-01-26] MEDS: BLOOD SUGAR DIAGNOSTIC STRIP TEST SCH ×3 (06:48→17:40)
[2019-01-26 06:52] LABS: CHLORIDE 113 mEq/L (98-107)
[2019-01-26 08:00] VITALS: BP 177/93
[2019-01-26] MEDS: INSULIN LISPRO 100 UNITS/ML SUBCUT SCH ×3 (08:10→18:10)
[2019-01-26] MEDS: ASPIRIN 81MG TABLET PO SCH (09:16)
[2019-01-26] MEDS: AMLODIPINE 5MG TABLET PO SCH (09:17)
[2019-01-26] MEDS: BUDESONIDE 0.5MG/2ML NEB HHN SCH (09:52)
[2019-01-26] MEDS: LEVOFLOXACIN 500MG PREMIX 100 ML IV SCH (10:40)
[2019-01-26] MEDS ORDERED: HYDRALAZINE HCL 50MG TABLET PO SCH (11:30)
[2019-01-26 12:00] VITALS: BP 165/85
[2019-01-26] MEDS ORDERED: HYDRALAZINE HCL 100MG TABLET PO SCH (14:00)
[2019-01-26] MEDS: ENOXAPARIN 40MG/0.4ML SYR SUBCUT SCH (15:55)
[2019-01-26 16:00] VITALS: BP 124/86
[2019-01-26 19:15] VITALS: BP 124/86
[2019-01-27] MEDS ORDERED: AMLODIPINE 10MG TABLET PO SCH (09:00)
== END 2019-01-26 19:30 | DRG 190 ==
LOC: ER 23:17 → ENRESERV 01-25 07:11 → 7WST 01-25 08:05
PROVIDERS: ADMIT Internal Medicine; ATTEND Internal Medicine
DX: J44.1 Chronic obstructive pulmonary disease with (acute) exacerbation (principal); I50.33 Acute on chronic diastolic (congestive) heart failure; G92 Toxic encephalopathy; N39.0 Urinary tract infection, site not specified; I11.0 Hypertensive heart disease with heart failure; D64.9 Anemia, unspecified; E11.65 Type 2 diabetes mellitus with hyperglycemia; E86.0 Dehydration; Z91.19 Patient's noncompliance with other medical treatment and regimen; Z99.81 Dependence on supplemental oxygen; Z88.0 Allergy status to penicillin; Z88.2 Allergy status to sulfonamides; Z79.899 Other long term (current) drug therapy; Z79.82 Long term (current) use of aspirin; Z95.810 Presence of automatic (implantable) cardiac defibrillator
CPT/HCPCS: 36415; 36600; 71045; 72170; 80048; 80305; 80320; 81003; 82375; 82550; 82805; 82962; 84153; 84484; 85027; 90686; 90732; 93005; 93306; 93970; 94640; 96365; 97162; 99285; J0696; J1200; J1650; J1815; J1956; J2060; J2920; J7620; J7626; G0103; G0480

== ENCOUNTER 2019-02-26 17:58 | Inpatient (IN) | payer MEDICARE, MEDICAID ==
[~2019-02-26] VITALS: Ht 167.6 cm; Wt 63.5 kg
[2019-02-26] MEDS ORDERED: DEXTROSE 50% WATER 50ML SYRINGE IV ONE (18:13)
[2019-02-26] MEDS ORDERED: SODIUM CHLORIDE 0.9% 1,000 ML IV ONE (18:25)
[2019-02-26 18:44] LABS: BASOPHILS % 1.4 % (0.0-2.0); EOSINOPHILS % 1.8 % (0.0-5.0); HEMATOCRIT. 43.9 % (42.0-52.0); HEMOGLOBIN. 14.6 g/dL (14.0-18.0); LYMPHOCYTES % 31.8 % (20.0-50.0); MEAN CORPUSCULAR HEMOGLOBIN 30.5 pg (28.0-32.0); MEAN CORPUSCULAR VOLUME 91.9 fL (80.0-94.0); MEAN PLATELET VOLUME 9.6 fl (7.4-10.4); MONOCYTES % 8.8 % (2.0-8.0); NEUTROPHILS % 56.2 % (40.0-76.0); PLATELET 169 x1000/uL (130-400); RED BLOOD CELL COUNT 4.77 mill/uL (4.7-6.1); RED CELL DISTRIBUTION WIDTH 13.1 % (11.6-14.6)
[2019-02-26 18:51] LABS: INR 1.1; PROTHROMBIN TIME 11.6 sec (9.6-11.0)
[2019-02-26] MEDS ORDERED: SODIUM CHLORIDE 0.9% 1000ML BAG (SEPSIS BOLUS) IV ONE (19:45)
[2019-02-26 20:00] LABS: CHLORIDE 118 mEq/L (98-107)
[2019-02-26 20:59] LABS: CLARITY URINE CLEAR (CLEAR); COLOR URINE YELLOW (YELLOW); KETONES URINE NEGATIVE (NEGATIVE); LEUKOCYTE ESTERASE URINE 1+ (NEGATIVE); NITRITE URINE NEGATIVE (NEGATIVE); OCCULT BLOOD URINE 2+ (NEGATIVE); PH URINE 5.5 (4.5-8.0); PROTEIN URINE NEGATIVE (NEGATIVE); UROBILINOGEN URINE 0.2 E.U./dL (0.2-1.0)
[2019-02-26] MEDS ORDERED: LEVOFLOXACIN 500MG PREMIX 100 ML IV ONE (21:30)
[2019-02-26 23:03] VITALS: BP 140/95
[2019-02-27] VITALS: BP 140/95
[2019-02-27] MEDS ORDERED: LORAZEPAM 1MG TABLET PO PRN
[2019-02-27] MEDS ORDERED: DEXTROSE 50% WATER 50ML SYRINGE IV PRN
[2019-02-27] MEDS ORDERED: LORAZEPAM 2MG/ML CPJ IV PRN ×2 (01:15→15:15)
[2019-02-27] MEDS: LORAZEPAM 2MG/ML CPJ IV PRN ×2 (01:26→09:13)
[2019-02-27 04:00] VITALS: BP 122/71
[2019-02-27] MEDS: IPRATROPIUM/ALBUTEROL 0.5-3(2.5)MG/3ML NEB HHN SCH ×5 (04:18→21:32)
[2019-02-27] MEDS: BLOOD SUGAR DIAGNOSTIC STRIP TEST SCH ×4 (06:52→21:00)
[2019-02-27 07:32] LABS: CREATINE KINASE MB FRACTION 4.6 ng/mL (0.5-3.6)
[2019-02-27 08:00] VITALS: BP 148/73
[2019-02-27] MEDS: INSULIN LISPRO 100 UNITS/ML SUBCUT SCH ×4 (08:10→21:00)
[2019-02-27] MEDS: PANTOPRAZOLE 40MG DR TABLET PO SCH (09:54)
[2019-02-27] MEDS: ENOXAPARIN 40MG/0.4ML SYR SUBCUT SCH (09:54)
[2019-02-27] MEDS: ASPIRIN 81MG TABLET PO SCH (09:54)
[2019-02-27 12:00] VITALS: BP 137/71
[2019-02-27 13:18] LABS: BASOPHILS % 0.6 % (0.0-2.0); EOSINOPHILS % 1.6 % (0.0-5.0); HEMATOCRIT. 43.2 % (42.0-52.0); HEMOGLOBIN. 14.3 g/dL (14.0-18.0); LYMPHOCYTES % 22.2 % (20.0-50.0); MEAN CORPUSCULAR HEMOGLOBIN 30.3 pg (28.0-32.0); MEAN CORPUSCULAR VOLUME 91.8 fL (80.0-94.0); MEAN PLATELET VOLUME 9.2 fl (7.4-10.4); MONOCYTES % 7.6 % (2.0-8.0); PLATELET 146 x1000/uL (130-400); RED BLOOD CELL COUNT 4.71 mill/uL (4.7-6.1); RED CELL DISTRIBUTION WIDTH 12.9 % (11.6-14.6)
[2019-02-27 13:30] LABS: CHLORIDE 111 mEq/L (98-107)
[2019-02-27 14:38] LABS: BG BASE EXCESS -1.4 mmol/L (-2.0-2.0); BG CARBOXYHEMOGLOBIN 0.9 % (0.5-1.5); BG DEOXYHEMOGLOBIN 5.5 % (0.0-5.0); BG FRACTION INSPIRED OXYGEN 21; BG METHEMOGLOBIN 0.3 % (0.0-1.5); BG OXYGEN SATURATION 94.4 % (92.0-98.5); BG OXYHEMOGLOBIN 93.3 % (94.0-97.0); BG PCO2 33.5 mmHg (35.0-45.0); BG PH 7.436 (7.350-7.450); BG PO2 69.5 mmHg (75.0-100.0); BG SAMPLE SITE RIGHT RADIAL; BG TOTAL HEMOGLOBIN 14.6 g/dL (12.0-18.0); BG VENT MODE ROOM AIR
[2019-02-27] MEDS ORDERED: HYDROCODONE/ACETAMINOPHEN 5/325MG TABLET PO PRN (15:15)
[2019-02-27] MEDS ORDERED: LACTULOSE 20G/30ML UDC PO PRN (15:15)
[2019-02-27] MEDS ORDERED: ACETAMINOPHEN 325MG TABLET PO PRN (15:15)
[2019-02-27] MEDS ORDERED: ACETAMINOPHEN 650MG SUPP PR PRN (15:15)
[2019-02-27] MEDS ORDERED: BISACODYL 10MG SUPP PR PRN (15:15)
[2019-02-27 15:39] LABS: CREATINE KINASE MB FRACTION 2.2 ng/mL (0.5-3.6)
[2019-02-27 16:00] VITALS: BP 140/62
[2019-02-27] MEDS: DEXT 5%/0.45% NACL 1000ML 1,000 ML IV SCH (17:34)
[2019-02-27] MEDS: METHYLPREDNISOLONE SOD SUCC 40 MG/ML VIAL IV SCH (17:34)
[2019-02-27 20:00] VITALS: BP 131/68
[2019-02-27] MEDS: LEVOFLOXACIN 500MG PREMIX 100 ML IV SCH (21:49)
[2019-02-28] VITALS: BP 121/94
[2019-02-28 00:54] LABS: CREATINE KINASE MB FRACTION 1.8 ng/mL (0.5-3.6)
[2019-02-28] MEDS: IPRATROPIUM/ALBUTEROL 0.5-3(2.5)MG/3ML NEB HHN SCH ×6 (01:40→21:20)
[2019-02-28 04:00] VITALS: BP 115/67
[2019-02-28] MEDS: METHYLPREDNISOLONE SOD SUCC 40 MG/ML VIAL IV SCH ×2 (06:16→17:16)
[2019-02-28] MEDS: BLOOD SUGAR DIAGNOSTIC STRIP TEST SCH ×4 (06:29→21:00)
[2019-02-28 06:59] LABS: BASOPHILS % 0.1 % (0.0-2.0); HEMATOCRIT. 37.9 % (42.0-52.0); HEMOGLOBIN. 12.8 g/dL (14.0-18.0); LYMPHOCYTES % 13.6 % (20.0-50.0); MEAN CORPUSCULAR HEMOGLOBIN 30.3 pg (28.0-32.0); MEAN CORPUSCULAR VOLUME 89.6 fL (80.0-94.0); MEAN PLATELET VOLUME 9.5 fl (7.4-10.4); MONOCYTES % 3.6 % (2.0-8.0); NEUTROPHILS % 82.7 % (40.0-76.0); PLATELET 154 x1000/uL (130-400); RED BLOOD CELL COUNT 4.24 mill/uL (4.7-6.1); RED CELL DISTRIBUTION WIDTH 12.8 % (11.6-14.6)
[2019-02-28 07:19] LABS: CHLORIDE 109 mEq/L (98-107)
[2019-02-28 08:00] VITALS: BP 118/66
[2019-02-28] MEDS: INSULIN LISPRO 100 UNITS/ML SUBCUT SCH ×4 (08:10→21:00)
[2019-02-28] MEDS: ENOXAPARIN 40MG/0.4ML SYR SUBCUT SCH (10:24)
[2019-02-28] MEDS: ASPIRIN 81MG TABLET PO SCH (10:25)
[2019-02-28] MEDS: PANTOPRAZOLE 40MG DR TABLET PO SCH (10:25)
[2019-02-28 12:00] VITALS: BP 124/67
[2019-02-28] MEDS: DEXT 5%/0.45% NACL 1000ML 1,000 ML IV SCH (13:12)
[2019-02-28 16:00] VITALS: BP 110/57
[2019-02-28 20:00] VITALS: BP 141/61
[2019-02-28] MEDS: LEVOFLOXACIN 500MG PREMIX 100 ML IV SCH (22:05)
[2019-03-01] VITALS (7 sets, daily range): BP systolic 125–155; BP diastolic 62–72
[2019-03-01] MEDS: IPRATROPIUM/ALBUTEROL 0.5-3(2.5)MG/3ML NEB HHN SCH ×5 (02:00→16:02)
[2019-03-01] MEDS: METHYLPREDNISOLONE SOD SUCC 40 MG/ML VIAL IV SCH ×2 (05:04→17:30)
[2019-03-01] MEDS: BLOOD SUGAR DIAGNOSTIC STRIP TEST SCH ×3 (06:14→17:30)
[2019-03-01 07:40] LABS: BASOPHILS % 0.1 % (0.0-2.0); HEMATOCRIT. 37.3 % (42.0-52.0); HEMOGLOBIN. 12.5 g/dL (14.0-18.0); LYMPHOCYTES % 8.4 % (20.0-50.0); MEAN CORPUSCULAR HEMOGLOBIN 30.2 pg (28.0-32.0); MEAN CORPUSCULAR VOLUME 90.2 fL (80.0-94.0); MEAN PLATELET VOLUME 9.9 fl (7.4-10.4); MONOCYTES % 4.8 % (2.0-8.0); NEUTROPHILS % 86.7 % (40.0-76.0); PLATELET 161 x1000/uL (130-400); RED BLOOD CELL COUNT 4.14 mill/uL (4.7-6.1); RED CELL DISTRIBUTION WIDTH 13.1 % (11.6-14.6)
[2019-03-01 08:04] LABS: CHLORIDE 109 mEq/L (98-107)
[2019-03-01] MEDS: INSULIN LISPRO 100 UNITS/ML SUBCUT SCH ×3 (08:10→17:30)
[2019-03-01] MEDS: ENOXAPARIN 40MG/0.4ML SYR SUBCUT SCH (08:31)
[2019-03-01] MEDS: ASPIRIN 81MG TABLET PO SCH (08:31)
[2019-03-01] MEDS ORDERED: FAMOTIDINE 20MG TABLET PO SCH ×2 (09:00)
[2019-03-01] MEDS: DEXT 5%/0.45% NACL 1000ML 1,000 ML IV SCH (11:48)
== END 2019-03-01 19:58 | DRG 291 ==
LOC: ER 17:58 → EDBEDREQ 18:28 → 7WST 21:30 → EDBEDREQ 21:44 → EDBEDREQTM 21:44 → ENRESERV 21:48 → 7WST 02-27 01:03
PROVIDERS: ADMIT Internal Medicine; ATTEND Internal Medicine
DX: I11.0 Hypertensive heart disease with heart failure (principal); G93.41 Metabolic encephalopathy; J44.1 Chronic obstructive pulmonary disease with (acute) exacerbation; N39.0 Urinary tract infection, site not specified; E87.2 Acidosis; M62.82 Rhabdomyolysis; E44.0 Moderate protein-calorie malnutrition; I50.33 Acute on chronic diastolic (congestive) heart failure; I25.10 Atherosclerotic heart disease of native coronary artery without angina pectoris; D64.9 Anemia, unspecified; E11.649 Type 2 diabetes mellitus with hypoglycemia without coma; E83.51 Hypocalcemia; F03.90 Unspecified dementia, unspecified severity, without behavioral disturbance, psychotic disturbance, mood disturbance, and anxiety; R62.7 Adult failure to thrive; N40.1 Benign prostatic hyperplasia with lower urinary tract symptoms; R33.8 Other retention of urine; N21.0 Calculus in bladder; N32.89 Other specified disorders of bladder; E86.0 Dehydration; Z87.891 Personal history of nicotine dependence; Z88.0 Allergy status to penicillin; Z88.2 Allergy status to sulfonamides; Z79.899 Other long term (current) drug therapy; Z79.82 Long term (current) use of aspirin; Z95.810 Presence of automatic (implantable) cardiac defibrillator; Z99.81 Dependence on supplemental oxygen; Z91.19 Patient's noncompliance with other medical treatment and regimen; Z68.22 Body mass index [BMI] 22.0-22.9, adult
CPT/HCPCS: 36415; 36600; 71045; 71250; 74176; 80048; 80053; 81003; 82140; 82375; 82378; 82550; 82553; 82805; 82962; 83605; 83880; 84153; 84484; 85025; 93005; 96361; 96365; 99291; C1893; J1650; J1815; J1956; J2060; J2920; J7030; J7620; A4315; G0103

== ENCOUNTER 2019-03-01 22:40 | Inpatient (IN) | payer MEDICARE, MEDICAID ==
[~2019-03-01] VITALS: Ht 167.6 cm; Wt 54.0 kg
[2019-03-02] MEDS ORDERED: SODIUM CHLORIDE 0.9% 1,000 ML IV ONE (09:04)
[2019-03-02 10:15] LABS: BASOPHILS % 0.2 % (0.0-2.0); EOSINOPHILS % 0.6 % (0.0-5.0); HEMATOCRIT. 38.8 % (42.0-52.0); HEMOGLOBIN. 13.1 g/dL (14.0-18.0); LYMPHOCYTES % 10.2 % (20.0-50.0); MEAN CORPUSCULAR HEMOGLOBIN 30.2 pg (28.0-32.0); MEAN CORPUSCULAR VOLUME 89.6 fL (80.0-94.0); MEAN PLATELET VOLUME 9.3 fl (7.4-10.4); MONOCYTES % 8.1 % (2.0-8.0); NEUTROPHILS % 80.9 % (40.0-76.0); PLATELET 159 x1000/uL (130-400); RED BLOOD CELL COUNT 4.33 mill/uL (4.7-6.1); RED CELL DISTRIBUTION WIDTH 13.1 % (11.6-14.6)
[2019-03-02 10:21] LABS: CHLORIDE 109 mEq/L (98-107)
[2019-03-02 10:23] LABS: INR 1.2; PARTIAL THROMBOPLASTIN TIME 31.1 sec (23.4-31.0)
[2019-03-02 10:31] LABS: CLARITY URINE CLOUDY (CLEAR); COLOR URINE YELLOW (YELLOW); KETONES URINE NEGATIVE (NEGATIVE); LEUKOCYTE ESTERASE URINE 2+ (NEGATIVE); NITRITE URINE NEGATIVE (NEGATIVE); OCCULT BLOOD URINE 3+ (NEGATIVE); PROTEIN URINE 2+ (NEGATIVE); SPECIFIC GRAVITY URINE 1.014 (1.005-1.030); UROBILINOGEN URINE 0.2 E.U./dL (0.2-1.0)
[2019-03-02] MEDS ORDERED: LEVOFLOXACIN 750MG PREMIX 150 ML IV ONE (12:30)
[2019-03-02] MEDS ORDERED: ACETAMINOPHEN 325MG TABLET PO PRN (12:45)
[2019-03-02] MEDS ORDERED: LORAZEPAM 0.5MG TABLET PO PRN (12:45)
[2019-03-02] MEDS ORDERED: CLONIDINE 0.1MG TABLET PO PRN (12:45)
[2019-03-02] MEDS ORDERED: ACETAMINOPHEN 650MG SUPP PR PRN (12:45)
[2019-03-02] MEDS: LEVOFLOXACIN 500MG PREMIX 100 ML IV SCH (12:45)
[2019-03-02] MEDS ORDERED: IPRATROPIUM/ALBUTEROL 0.5-3(2.5)MG/3ML NEB NEB PRN (12:45)
[2019-03-02] MEDS ORDERED: MAGNESIUM/ALUMINUM HYDROXIDE/SIMETHICONE 30ML UDC PO PRN (12:45)
[2019-03-02] MEDS ORDERED: GUAIFENESIN 200MG/10ML SUGAR FREE UDC PO PRN (12:45)
[2019-03-02] MEDS ORDERED: ONDANSETRON HCL 4MG/2ML INJ IV PRN (12:45)
[2019-03-02] MEDS ORDERED: HYDROCODONE/ACETAMINOPHEN 5/325MG TABLET PO PRN (12:45)
[2019-03-02] MEDS ORDERED: NA PHOS,M-B/NA PHOS,DI-BA ENEMA 118ML PR PRN (12:45)
[2019-03-02] MEDS ORDERED: DIPHENHYDRAMINE 50MG/ML VIAL IV PRN (12:45)
[2019-03-02] MEDS: DEXTROSE 50% WATER 50ML SYRINGE IV PRN (14:28)
[2019-03-02 18:56] VITALS: BP 127/66
[2019-03-02 20:00] VITALS: BP 131/55
[2019-03-02] MEDS: CARVEDILOL 3.125 MG TABLET PO SCH (21:00)
[2019-03-02] MEDS: FAMOTIDINE 20MG TABLET PO SCH (21:00)
[2019-03-02] MEDS: INSULIN LISPRO 100 UNITS/ML SUBCUT SCH (21:00)
[2019-03-02] MEDS: BLOOD SUGAR DIAGNOSTIC STRIP TEST SCH (21:24)
[2019-03-02] MEDS: BUDESONIDE 0.5MG/2ML NEB HHN SCH (21:37)
[2019-03-02] MEDS: IPRATROPIUM/ALBUTEROL 0.5-3(2.5)MG/3ML NEB NEB SCH (21:37)
[2019-03-02 23:22] VITALS: BP 131/55
[2019-03-02] MEDS: LORAZEPAM 2MG/ML CPJ IV PRN (23:53)
[2019-03-03] VITALS: BP 130/68
[2019-03-03] MEDS: IPRATROPIUM/ALBUTEROL 0.5-3(2.5)MG/3ML NEB NEB SCH ×4 (01:37→21:49)
[2019-03-03 04:00] VITALS: BP 125/62
[2019-03-03] MEDS: BLOOD SUGAR DIAGNOSTIC STRIP TEST SCH ×4 (05:55→21:16)
[2019-03-03] MEDS: DEXTROSE 50% WATER 50ML SYRINGE IV PRN (06:10)
[2019-03-03] MEDS: INSULIN LISPRO 100 UNITS/ML SUBCUT SCH ×4 (06:56→21:00)
[2019-03-03 07:16] LABS: BASOPHILS % 0.3 % (0.0-2.0); EOSINOPHILS % 4.2 % (0.0-5.0); HEMATOCRIT. 35.8 % (42.0-52.0); HEMOGLOBIN. 12.2 g/dL (14.0-18.0); LYMPHOCYTES % 16.3 % (20.0-50.0); MEAN CORPUSCULAR HEMOGLOBIN 30.5 pg (28.0-32.0); MEAN CORPUSCULAR VOLUME 89.8 fL (80.0-94.0); MEAN PLATELET VOLUME 9.2 fl (7.4-10.4); MONOCYTES % 10.2 % (2.0-8.0); PLATELET 123 x1000/uL (130-400); RED BLOOD CELL COUNT 3.99 mill/uL (4.7-6.1); RED CELL DISTRIBUTION WIDTH 13.1 % (11.6-14.6)
[2019-03-03 07:18] LABS: CHLORIDE 110 mEq/L (98-107)
[2019-03-03 08:00] VITALS: BP 131/74
[2019-03-03] MEDS: CARVEDILOL 3.125 MG TABLET PO SCH ×2 (10:27→21:00)
[2019-03-03 12:00] VITALS: BP 108/58
[2019-03-03] MEDS: BUDESONIDE 0.5MG/2ML NEB HHN SCH ×2 (14:17→20:00)
[2019-03-03] MEDS: LEVOFLOXACIN 500MG PREMIX 100 ML IV SCH (15:01)
[2019-03-03 16:00] VITALS: BP 140/57
[2019-03-03 20:00] VITALS: BP 110/57
[2019-03-03] MEDS: FAMOTIDINE 20MG TABLET PO SCH (21:56)
[2019-03-04] VITALS: BP 121/78
[2019-03-04 04:00] VITALS: BP 136/73
[2019-03-04] MEDS: INSULIN LISPRO 100 UNITS/ML SUBCUT SCH ×4 (06:51→21:00)
[2019-03-04] MEDS: BLOOD SUGAR DIAGNOSTIC STRIP TEST SCH ×4 (06:51→21:00)
[2019-03-04 08:00] VITALS: BP 113/50
[2019-03-04] MEDS: IPRATROPIUM/ALBUTEROL 0.5-3(2.5)MG/3ML NEB NEB SCH ×3 (08:09→21:40)
[2019-03-04] MEDS: BUDESONIDE 0.5MG/2ML NEB HHN SCH ×2 (08:09→21:40)
[2019-03-04] MEDS: CARVEDILOL 3.125 MG TABLET PO SCH ×2 (09:29→21:00)
[2019-03-04 12:00] VITALS: BP 102/40
[2019-03-04] MEDS: LEVOFLOXACIN 500MG PREMIX 100 ML IV SCH (13:01)
[2019-03-04 16:00] VITALS: BP 107/58
[2019-03-04 20:00] VITALS: BP 141/72
[2019-03-04] MEDS: FAMOTIDINE 20MG TABLET PO SCH (21:00)
[2019-03-04] MEDS: DEXT 5%/0.45% NACL 1000ML 1,000 ML IV SCH (23:23)
[2019-03-05] VITALS: BP 103/73
[2019-03-05] MEDS: IPRATROPIUM/ALBUTEROL 0.5-3(2.5)MG/3ML NEB NEB SCH ×4 (02:10→20:30)
[2019-03-05 04:00] VITALS: BP 108/65
[2019-03-05] MEDS: BLOOD SUGAR DIAGNOSTIC STRIP TEST SCH ×4 (06:48→21:59)
[2019-03-05] MEDS: INSULIN LISPRO 100 UNITS/ML SUBCUT SCH ×4 (06:49→21:00)
[2019-03-05 08:00] VITALS: BP 106/46
[2019-03-05] MEDS: BUDESONIDE 0.5MG/2ML NEB HHN SCH ×2 (08:00→20:00)
[2019-03-05] MEDS: CARVEDILOL 3.125 MG TABLET PO SCH ×2 (08:40→21:00)
[2019-03-05 12:00] VITALS: BP 104/54
[2019-03-05] MEDS: LEVOFLOXACIN 500MG TABLET PO SCH (12:07)
[2019-03-05 16:00] VITALS: BP 134/56
[2019-03-05] MEDS: DEXT 5%/0.45% NACL 1000ML 1,000 ML IV SCH (18:01)
[2019-03-05 20:00] VITALS: BP 146/82
[2019-03-05] MEDS: FAMOTIDINE 20MG TABLET PO SCH (22:00)
[2019-03-06] VITALS: BP 133/57
[2019-03-06] MEDS: DEXT 5%/0.45% NACL 1000ML 1,000 ML IV SCH ×2 (00:23→14:45)
[2019-03-06] MEDS: LORAZEPAM 2MG/ML CPJ IV PRN ×2 (00:23→23:53)
[2019-03-06] MEDS: IPRATROPIUM/ALBUTEROL 0.5-3(2.5)MG/3ML NEB NEB SCH ×4 (01:47→21:02)
[2019-03-06 04:00] VITALS: BP 119/97
[2019-03-06] MEDS: BLOOD SUGAR DIAGNOSTIC STRIP TEST SCH ×4 (07:10→21:00)
[2019-03-06] MEDS: INSULIN LISPRO 100 UNITS/ML SUBCUT SCH ×4 (07:13→21:00)
[2019-03-06 08:00] VITALS: BP 143/53
[2019-03-06] MEDS: CARVEDILOL 3.125 MG TABLET PO SCH ×2 (09:10→21:00)
[2019-03-06] MEDS: DOCUSATE SODIUM 100MG CAPSULE PO PRN (09:10)
[2019-03-06] MEDS: LEVOFLOXACIN 500MG TABLET PO SCH (11:51)
[2019-03-06 12:00] VITALS: BP 120/50
[2019-03-06] MEDS: BUDESONIDE 0.5MG/2ML NEB HHN SCH ×2 (14:08→21:02)
[2019-03-06 16:00] VITALS: BP 130/66
[2019-03-06 18:06] LABS: HEMATOCRIT 37.7 % (42.0-52.0); HEMOGLOBIN 12.6 g/dL (14.0-18.0); MEAN CORPUSCULAR HEMOGLOBIN 30.1 pg (28.0-32.0); PLATELET 141 x1000/uL (130-400); RED BLOOD CELL COUNT 4.19 mill/uL (4.7-6.1); RED CELL DISTRIBUTION WIDTH 13.2 % (11.6-14.6)
[2019-03-06 18:14] LABS: CHLORIDE 110 mEq/L (98-107)
[2019-03-06] MEDS: FAMOTIDINE 20MG TABLET PO SCH (23:32)
[2019-03-07] VITALS: BP 118/83
[2019-03-07] MEDS: IPRATROPIUM/ALBUTEROL 0.5-3(2.5)MG/3ML NEB NEB SCH ×4 (01:09→21:05)
[2019-03-07] MEDS: DEXT 5%/0.45% NACL 1000ML 1,000 ML IV SCH (03:22)
[2019-03-07 04:00] VITALS: BP 123/67
[2019-03-07] MEDS: BLOOD SUGAR DIAGNOSTIC STRIP TEST SCH ×4 (06:38→21:27)
[2019-03-07] MEDS: INSULIN LISPRO 100 UNITS/ML SUBCUT SCH ×4 (06:42→21:00)
[2019-03-07 08:00] VITALS: BP 145/73
[2019-03-07] MEDS: CARVEDILOL 3.125 MG TABLET PO SCH ×2 (09:00→21:00)
[2019-03-07] MEDS: LEVOFLOXACIN 500MG TABLET PO SCH (11:06)
[2019-03-07 12:00] VITALS: BP 138/75
[2019-03-07] MEDS ORDERED: IPRATROPIUM/ALBUTEROL 0.5-3(2.5)MG/3ML NEB HHN SCH (12:45)
[2019-03-07] MEDS: BUDESONIDE 0.5MG/2ML NEB HHN SCH ×2 (13:05→21:06)
[2019-03-07] MEDS: LINEZOLID 600MG TABLET PO SCH ×3 (13:28→21:30)
[2019-03-07] MEDS: METHYLPREDNISOLONE SOD SUCC 40 MG/ML VIAL IV SCH ×2 (14:58→21:29)
[2019-03-07 16:00] VITALS: BP 130/74
[2019-03-07 20:00] VITALS: BP 112/55
[2019-03-07] MEDS: FAMOTIDINE 20MG TABLET PO SCH ×2 (21:00→21:29)
[2019-03-08] VITALS: BP 115/55
[2019-03-08] MEDS: IPRATROPIUM/ALBUTEROL 0.5-3(2.5)MG/3ML NEB NEB SCH ×2 (00:47→14:35)
[2019-03-08 01:19] LABS: BASOPHILS % 0.2 % (0.0-2.0); HEMATOCRIT. 37.4 % (42.0-52.0); HEMOGLOBIN. 12.5 g/dL (14.0-18.0); LYMPHOCYTES % 11.6 % (20.0-50.0); MEAN CORPUSCULAR HEMOGLOBIN 29.9 pg (28.0-32.0); MEAN CORPUSCULAR VOLUME 89.6 fL (80.0-94.0); MONOCYTES % 2.6 % (2.0-8.0); NEUTROPHILS % 85.6 % (40.0-76.0); PLATELET 156 x1000/uL (130-400); RED BLOOD CELL COUNT 4.18 mill/uL (4.7-6.1); RED CELL DISTRIBUTION WIDTH 13.7 % (11.6-14.6)
[2019-03-08 01:27] LABS: CHLORIDE 108 mEq/L (98-107)
[2019-03-08 04:00] VITALS: BP 120/56
[2019-03-08] MEDS: METHYLPREDNISOLONE SOD SUCC 40 MG/ML VIAL IV SCH (05:29)
[2019-03-08] MEDS: INSULIN LISPRO 100 UNITS/ML SUBCUT SCH ×2 (06:40→12:09)
[2019-03-08] MEDS: BLOOD SUGAR DIAGNOSTIC STRIP TEST SCH ×2 (06:40→12:08)
[2019-03-08] MEDS: BUDESONIDE 0.5MG/2ML NEB HHN SCH (08:58)
[2019-03-08] MEDS: LINEZOLID 600MG TABLET PO SCH ×2 (09:00→10:00)
[2019-03-08] MEDS: CARVEDILOL 3.125 MG TABLET PO SCH ×3 (09:00→11:30)
[2019-03-08] MEDS: DOCUSATE SODIUM 100MG CAPSULE PO PRN (10:02)
[2019-03-08] MEDS: LEVOFLOXACIN 500MG TABLET PO SCH (11:12)
[2019-03-08 12:00] VITALS: BP 133/64
[2019-03-08 16:00] VITALS: BP 127/67
[2019-03-08] MEDS ORDERED: METHYLPREDNISOLONE SOD SUCC 40 MG/ML VIAL IV SCH (18:00)
== END 2019-03-08 17:40 | DRG 291 ==
LOC: ER 22:40 → 5WST 03-02 12:29 → ENRESERV 03-02 14:05 → 5WST 03-02 19:17
PROVIDERS: ADMIT Internal Medicine; ATTEND Internal Medicine
DX: I11.0 Hypertensive heart disease with heart failure (principal); J96.01 Acute respiratory failure with hypoxia; J44.1 Chronic obstructive pulmonary disease with (acute) exacerbation; N39.0 Urinary tract infection, site not specified; G93.40 Encephalopathy, unspecified; I50.33 Acute on chronic diastolic (congestive) heart failure; B95.2 Enterococcus as the cause of diseases classified elsewhere; D64.9 Anemia, unspecified; E11.9 Type 2 diabetes mellitus without complications; F03.90 Unspecified dementia, unspecified severity, without behavioral disturbance, psychotic disturbance, mood disturbance, and anxiety; N40.1 Benign prostatic hyperplasia with lower urinary tract symptoms; R33.8 Other retention of urine; I25.10 Atherosclerotic heart disease of native coronary artery without angina pectoris; E86.0 Dehydration; I49.3 Ventricular premature depolarization; N21.0 Calculus in bladder; N32.89 Other specified disorders of bladder; Z88.0 Allergy status to penicillin; Z88.2 Allergy status to sulfonamides; Z91.19 Patient's noncompliance with other medical treatment and regimen; Z99.81 Dependence on supplemental oxygen; Z79.899 Other long term (current) drug therapy; Z79.82 Long term (current) use of aspirin; Z95.810 Presence of automatic (implantable) cardiac defibrillator; Z87.01 Personal history of pneumonia (recurrent)
CPT/HCPCS: 36415; 71045; 80048; 80053; 81003; 82962; 83735; 85025; 85027; 86850; 86900; 87077; 87186; 93005; 94640; 97162; 99285; C1893; J1956; J2060; J2920; J7030; J7040; J7620; J7626; A4315